=== PATIENT | male | born 1960 | race Two or more races ===

== ENCOUNTER 2021-08-29 01:51 | Inpatient (IN) | payer SELFPAY ==
[~2021-08-29] VITALS: Ht 180.3 cm; Wt 79.7 kg
[2021-08-29] MEDS ORDERED: HALOPERIDOL LACTATE 5 MG/ML VIAL. IVP PRN (02:15)
[2021-08-29] MEDS ORDERED: hydrALAZINE 20 MG/ML VIAL. IVP PRN (02:15)
[2021-08-29] MEDS ORDERED: ACETAMINOPHEN 325 MG TABLET. PO PRN (02:15)
[2021-08-29] MEDS ORDERED: ONDANSETRON PF 4 MG/2 ML VIAL. IV PRN (02:15)
[2021-08-29] MEDS ORDERED: fentaNYL PF VIAL 100 MCG/2 ML VIAL IVP PRN (02:15)
--- NOTE | 2021-08-29 02:16 | NUR ---
Admit from [facility] via EMS rkaty. A/O x 4 on arrival. Pleasant. Cooperative. Hungry. Ate box lunch. Explained he has been sick for over a month with generalized pain. Rates pain 4/10 described as aching. Uses [facility] but does not know his medication list. , Mary Ellen, , is swimming pool serviceperson. Orientated to room and call light. Reviewed POC. Verbalized understanding. Resting in bed. Call light at hand.
[2021-08-29 02:22] VITALS: BP 169/90
[2021-08-29 07:00] VITALS: BP 147/75
--- NOTE | 2021-08-29 09:42 | PDOC2 ---
CHITO ALEXANDER FOOD SELECTOR 08/29/21 0942: CARDIAC CONSULT DATE OF CONSULT Date of Consult DATE: 08/29/21 TIME: 09:37 REASON FOR CONSULT Reason for Consult: NSTEMI REFERRING PHYSICIAN Referring Physician: Dr. Hoyt SOURCE Source: Chart review, Patient HISTORY OF PRESENT ILLNESS HISTORY OF PRESENT ILLNESS This is a 60 yo male who presented secondary to persistent nausea/vomiting, body aches, and productive cough. Patient reports nausea/vomiting for the last 5-6 days. Has been unable to keep much down. Consequently, has been unable to take his medications. Blood pressure significantly elevated upon arrival at 249/138. Troponin noted to be mildly elevated, which prompted this consult. Patient was transferred to [facility] for further evaluation and treatment. He denies any chest pain, palpitations, dizziness, diaphoresis. Home BP meds have been resumed and blood pressure has improved. Also was able to eat a meal yesterday evening and has had no further vomiting. Has a history of CAD s/p PCI/stent 6 months ago in [place], [place]. Reports reduced heart function at that time. Follows with fountain dispenser, Dr. Fallon. Repeat echocardiogram with normal heart function per patient's reports. Is scheduled for outpatient gastric emptying study next week. PAST MEDICAL HISTORY Cardiovascular: AFIB, CAD, CHF, HTN, Hyperlipidemia Pulmonary: Asthma Musculoskeletal: Osteoarthritis Endocrine: Diabetes PAST SURGICAL HISTORY Past Surgical History: Other (PCI/stent ) FAMILY HISTORY Family History: Hypertension SOCIAL HISTORY Smoke: No ALCOHOL: none Drugs: Marijuana Lives: with Family ALLERGIES ALLERGIES: Coded Allergies: No Known Drug Allergies (Unverified , 08/29/21) ROS Review of System 14 point ROS conducted with pertinent positives noted above in HPI PHYSICAL EXAM General: Alert, Oriented X3, Cooperative, No acute distress HEENT: Atraumatic Lungs: Clear to auscultation Heart: Regular rate Abdomen: Soft, No tenderness Extremities: No edema, Normal pulses Skin: No significant lesion, Other (right great toe ulcer) Neuro: Normal speech, Sensation intact Psych/Mental Status: Mental status NL, Mood NL MUSCULOSKELETAL: Osteoarthritic changes both hands VITALS/I&O VITALS/I&O: Vital Signs Date Time Temp Pulse Resp B/P (MAP) Pulse Ox O2 Delivery O2 Flow Rate FiO2 08/29/21 07:00 98.1 73 16 147/75 (99) 100 Room Air 98.1 I & O 08/28/21 08/28/21 08/29/21 14:59 22:59 06:59 Intake Total 300 ml Balance 300 ml LABS Lab: Laboratory Tests Test 08/29/21 08:08 Glucose (Fingerstick) 237 mg/dL (70-99) H ASSESSMENT/PLAN ASSESSMENT/PLAN 1. Persistent nausea/vomiting; now resolved. Scheduled for outpatient gastric emptying study 2. Hypertensive urgency; secondary to missed medical therapy due to above. Now controlled 3. CAD; s/p recent PCI/stent 4. Mild troponin elevation; highest 380. Most probably type II, demand ischemia in setting of #2. CP free. 5. H/o ischemic cardiomyopathy; reports LV recovery per recent echo 6. Chronic diastolic CHF; appears compensated 7. Hyperlipidemia 8. Diabetes, II 9. PAFIB; presently SR. On Amiodarone for rhythm maintenance and Eliquis for stroke prophylaxis. 9. Marijuana use Recommendations Continue secondary prevention Outpatient GI workup as previously scheduled Follow up with primary fountain dispenser upon discharge Supportive care CELY HILARIO MD 08/29/21 1647: CARDIAC CONSULT ASSESSMENT/PLAN ASSESSMENT/PLAN Patient seen and examined He is feeling significantly better with no chest pain. Persistent nausea/vomiting; now resolved. Scheduled for outpatient gastric emptying study Hypertensive urgency; secondary to missed medical therapy due to above. Now controlled CAD; s/p recent PCI/stent. Follows with an outpatient fountain dispenser. Mild troponin elevation; highest 380. Most probably type II, demand ischemia in setting of hypertensive urgency. CP free. H/o ischemic cardiomyopathy; reports LV recovery per recent echo Chronic diastolic CHF; compensated Hyperlipidemia. Continuing medical treatment. Diabetes, II PAFIB; presently SR. On Amiodarone for rhythm maintenance and Eliquis for stroke prophylaxis. CHITO ALEXANDER APRN Aug 29, 2021 09:42 CELY HILARIO MD Aug 29, 2021 16:47
[2021-08-29 11:06] VITALS: BP 130/81
[2021-08-29] MEDS ORDERED: PRAS10TA9 PO (11:49)
[2021-08-29] MEDS ORDERED: AMIO200T53 PO (11:49)
[2021-08-29] MEDS ORDERED: METF500T16 PO (11:49)
[2021-08-29] MEDS ORDERED: PANT20TA2 PO (11:49)
[2021-08-29] MEDS ORDERED: CEPH500T PO (11:49)
[2021-08-29] MEDS ORDERED: CLIN130C TP (11:49)
[2021-08-29] MEDS ORDERED: SULF1TAB23 PO (11:49)
[2021-08-29] MEDS ORDERED: ONDA4TAB12 PO (11:49)
[2021-08-29] MEDS ORDERED: APIX5TAB PO (11:49)
[2021-08-29] MEDS ORDERED: SPIR25TA5 PO (11:49)
[2021-08-29] MEDS ORDERED: CARV3.12 PO (11:49)
[2021-08-29] MEDS ORDERED: IV DEXTROSE 5% 250 ML BAG. IV PRN (13:15)
[2021-08-29] MEDS ORDERED: DEXTROSE 50% 25 GM / 50ML DISP.SYRIN. IV PRN (13:15)
--- NOTE | 2021-08-29 13:35 | PDOC1 ---
History and Physical Date of Admission Date of Admission DATE: 08/29/21 TIME: 13:17 Identification/Chief Complaint Chief Complaint Nausea/vomiting Source Source: Patient History of Present Illness History of Present Illness Patient is a 60-year-old male with past medical history CAD with stent, DM2, HTN, GERD, who presents as a transfer from [facility] with concerns for NSTEMI. He reports nausea and vomiting over the past several days, and inability to take his home medications. These symptoms are not new to him, but did worsen acutely. Labs on admission showed glucose 239, troponin 170, 287, 380. Repeat high-sensitivity troponin this morning 474. He reports a history of a stent placement roughly 7 months ago at an outside facility. Since that time he has had intermittent syncopal episodes that occur when he gets up from standing. He is scheduled for gastric emptying study today to evaluate for possible gastroparesis as etiology of nausea/vomiting. Patient was admitted to our service with cardiology consult. Past Medical History Cardiovascular: CAD, CHF, HTN, Hyperlipidemia Pulmonary: Asthma Musculoskeletal: Osteoarthritis Endocrine: Diabetes Past Surgical History Past Surgical History Exploratory laparotomy, right finger surgery Family History Family History DM2, HTN Social History Smoke: No ALCOHOL: none Drugs: Marijuana Current Medications Current Medications Current Medications Ondansetron HCl (Zofran) 4 mg PRN Q4HRS PRN IV NAUSEA/VOMITING; Start 08/29/21 at 02:15 Acetaminophen (Tylenol) 650 mg PRN Q4HRS PRN PO TEMP OVER 100.4F OR MILD PAIN; Start 08/29/21 at 02:15 Hydralazine HCl (Apresoline Inj) 10 mg PRN Q4HRS PRN IVP ELEVATED BP, SEE COMMENTS; Start 08/29/21 at 02:15 Fentanyl Citrate (Fentanyl 2ml Vial) 25 mcg PRN Q2HR PRN IVP PAIN; Start 08/29/21 at 02:15 Haloperidol Lactate (Haldol Inj) 5 mg PRN Q6HRS PRN IVP AGITATION; Start 08/29/21 at 02:15 Apixaban (Eliquis) 5 mg DAILY PO ; Start 08/30/21 at 09:00; Status UNV Carvedilol (Coreg) 3.125 mg BIDWMEALS PO ; Start 08/29/21 at 17:00; Status UNV Active Scripts Active Reported Bactrim 400-80 Mg Tablet (Sulfamethoxazole/Trimethoprim) 1 Each Tablet 2 Tab PO BID 7 Days Cephalexin 500 Mg Tablet 1 Tab PO QID Neuac 1.2-5% Kit (Clindamycin/Benzoyl/Emol Cmb94) 130 Gm Cmb.cr.gel 1 Len TP DAILYWBKFT 30 Days Ondansetron Odt (Ondansetron) 4 Mg Tab.rapdis 1 Tab PO Q4HRS Effient (Prasugrel Hcl) 10 Mg Tablet 1 Tab PO DAILY Metformin Hcl 500 Mg Tablet 500 Mg PO BIDWMEALS Eliquis (Apixaban) 5 Mg Tablet 5 Mg PO DAILY Amiodarone Hcl 200 Mg Tablet 1 Tab PO DAILY Protonix (Pantoprazole Sodium) 20 Mg Tablet.dr 1 Tab PO DAILY Spironolactone 25 Mg Tablet 1 Tab PO DAILY Coreg (Carvedilol) 3.125 Mg Tablet 3.125 Mg PO BIDWMEALS Allergies Allergies: Coded Allergies: No Known Drug Allergies (Unverified , 08/29/21) ROS Review of System GENERAL: No history of weight change, weakness or fevers. SKIN: No bruising, hair changes or rashes. EYES: No blurred, double or loss of vision. NOSE AND THROAT: No history of nosebleeds, hoarseness or sore throat. HEART: Denies chest pain, denies palpitations. LUNGS: Denies cough, hemoptysis, wheezing or shortness of breath. GASTROINTESTINAL: Denies nausea, vomiting, abdominal pain. GENITOURINARY: Denies dysuria, frequency, urgency, hematuria. NEUROLOGIC: Denies history of numbness, tingling, tremor or weakness. PSYCHIATRIC: Denies anxiety, denies depression. ENDOCRINE: No history of heat or cold intolerance, polyuria or polydipsia. EXTREMITIES: Denies muscle weakness, joint pain, pain on walking or stiffness. Physical Exam Physical Exam General: Alert, Oriented X3, Cooperative, No acute distress HEENT: PERRLA, EOMI Lungs: Clear to auscultation, Normal air movement Heart: RRR, no murmurs Cardiovascular: S1, S2 Abdomen: Normal bowel sounds, Soft, No tenderness Extremities: No clubbing, No cyanosis Skin: No rashes, No significant lesion Neuro: Normal speech, Normal tone, Sensation intact Psych/Mental Status: Mental status NL, Mood NL Vitals Vitals Vital Signs Date Time Temp Pulse Resp B/P (MAP) Pulse Ox O2 Delivery O2 Flow Rate FiO2 08/29/21 11:06 98.0 85 20 130/81 (97) 99 Room Air 98.0 Labs Labs Laboratory Tests Test 08/29/21 08:08 08/29/21 11:10 08/29/21 11:28 Glucose (Fingerstick) 237 mg/dL (70-99) 291 mg/dL (70-99) Troponin I High Sensitivity 474 ng/L (4-75) Laboratory Tests Test 08/29/21 08:08 08/29/21 11:10 08/29/21 11:28 Glucose (Fingerstick) 237 mg/dL (70-99) 291 mg/dL (70-99) Troponin I High Sensitivity 474 ng/L (4-75) VTE Prophylaxis Ordered VTE Prophylaxis Devices: Yes VTE Pharmacological Prophylaxi: No Assessment/Plan Assessment/Plan Elevated troponins DM2 with hyperglycemia HTN GERD Plan: Cardiology was consulted but upon further evaluation I do not believe there are plans for any ischemic evaluation. Patient did have an echocardiogram performed at his regional vice president surgical sales office roughly 1 month ago with normal ejection fraction. No signs of volume overload or acute CHF on evaluation. Repeat high-sensitivity troponin elevated but not significantly. Cardiology has no plans for further evaluation patient can be discharged today. I discussed follow-up with PCP, his regional vice president surgical sales, and his fish cutting machine operator to complete further outpatient evaluation, and patient is comfortable with this plan of action. Discussed marijuana cessation and possible marijuana induced hyperemesis and alternative etiology. Greater than 30 minutes were spent managing the discharge of this patient. Justifications for Admission Other Justification CHRISTINA SWANN MD Aug 29, 2021 13:35
--- NOTE | 2021-08-29 13:46 | PDOC3 ---
Discharge Summary Visit Information Date of Admission: Aug 29, 2021 Date of Discharge: Aug 29, 2021 Brief Hospital Course Allergies Allergies Coded Allergies Type Severity Reaction Last Updated Verified No Known Drug Allergies 08/29/21 No Vital Signs Vital Signs Date Time Temp Pulse Resp B/P (MAP) Pulse Ox O2 Delivery O2 Flow Rate FiO2 08/29/21 11:06 98.0 85 20 130/81 (97) 99 Room Air 98.0 Lab Results Laboratory Tests Test 08/29/21 08:08 08/29/21 11:10 08/29/21 11:28 Glucose (Fingerstick) 237 mg/dL (70-99) 291 mg/dL (70-99) Troponin I High Sensitivity 474 ng/L (4-75) Laboratory Tests Test 08/29/21 08:08 08/29/21 11:10 08/29/21 11:28 Glucose (Fingerstick) 237 mg/dL (70-99) 291 mg/dL (70-99) Troponin I High Sensitivity 474 ng/L (4-75) Brief Hospital Course Mr. Kerr is a 60 old male who presented with NSTEMI. Initial high- sensitivity troponins showed 170, 287, PAD. Repeat high-sensitivity troponin at [place] was 474. His presenting symptoms at [facility] were nausea and vomiting, which has resolved today. He has a track repair person who is working him up for gastroparesis, and a window cutter at an outside facility. Cardiology was consulted, and I do not believe they have any plans for acute evaluation or treatment. Patient stable for discharge home with close PCP follow-up. Discharge Information Condition at Discharge: Improved Disposition/Orders: D/C to Home Scheduled Amiodarone Hcl (Amiodarone Hcl) 200 Mg Tablet, 1 TAB PO DAILY for cardiac, #90 Ref 1 (Reported) Entered as Reported by: DEMARCO PADILLA on 08/29/211148 Last Action: New Order on 08/29/211148 by DEMARCO PADILLA Apixaban (Eliquis) 5 Mg Tablet, 5 MG PO DAILY for cardiac, (Reported) Entered as Reported by: DEMARCO PADILLA on 08/29/211148 Last Action: Continued on 08/29/21 1313 by CHRISTINA SWANN MD Carvedilol (Coreg ) 3.125 Mg Tablet, 3.125 MG PO BIDWMEALS for CARDIAC, (R eported) Entered as Reported by: DEMARCO PADILLA on 08/29/211148 Last Action: Continued on 08/29/211312 by CHRISTINA SWANN MD Cephalexin (Cephalexin) 500 Mg Tablet, 1 TAB PO QID for infection, #40 (Reported) Entered as Reported by: DEMARCO PADILLA on 08/29/211148 Last Action: New Order on 08/29/211148 by DEMARCO PADILLA Clindamycin/Benzoyl/Emol Cmb94 (Neuac 1.2-5% Kit) 130 Gm Cmb.cr.gel, 1 ZENON TP DAILYWBKFT for infection for 30 Days, #130 Ref 0 (Reported) Entered as Reported by: DEMARCO PADILLA on 08/29/211148 Last Action: New Order on 08/29/211148 by DEMARCO PADILLA Metformin Hcl (Metformin Hcl) 500 Mg Tablet, 500 MG PO BIDWMEALS for ANTI- DIABETIC, Ref 0 (Reported) Entered as Reported by: DEMARCO PADILLA on 08/29/211148 Last Action: New Order on 08/29/211148 by DEMARCO PADILLA Ondansetron (Ondansetron Odt) 4 Mg Tab.rapdis, 1 TAB PO Q4HRS for GI, #16 (Reported) Entered as Reported by: DEMARCO PADILLA on 08/29/211148 Last Action: New Order on 08/29/211148 by DEMARCO PADILLA Pantoprazole Sodium (Protonix) 20 Mg Tablet.dr, 1 TAB PO DAILY for GI, #30 (Reported) Entered as Reported by: DEMARCO PADILLA on 08/29/211148 Last Action: New Order on 08/29/211148 by DEMARCO PADILLA Prasugrel Hcl (Effient) 10 Mg Tablet, 1 TAB PO DAILY for cardiac, #90 Ref 1 (Reported) Entered as Reported by: DEMARCO PADILLA on 08/29/211148 Last Action: New Order on 08/29/211148 by DEMARCO PADILLA Spironolactone (Spironolactone) 25 Mg Tablet, 1 TAB PO DAILY for diuretic, #90 Ref 1 (Reported) Entered as Reported by: DEMARCO PADILLA on 08/29/211148 Last Action: New Order on 08/29/211148 by DEMARCO PADILLA Sulfamethoxazole/Trimethoprim (Bactrim 400-80 Mg Tablet) 1 Each Tablet, 2 TAB PO BID for infection for 7 Days, #28 Ref 0 (Reported) Entered as Reported by: DEMARCO PADILLA on 08/29/211148 Last Action: New Order on 08/29/211148 by DEMARCO PADILLA Justicifation of Admission Dx: Justifications for Admission: Justification of Admission Dx: Yes CHRISTINA SWANN MD Aug 29, 2021 13:45
[2021-08-29] MEDS ORDERED: APIXABAN 5 MG TABLET. PO SCH (14:00)
--- NOTE | 2021-08-29 14:27 | NUR ---
SS following for discharge planning. SS reviewed pt chart and discussed with pt RN. Pt is from home with spouse and is currently on room air. Self pay. Med Assist following. Discharge order on the chart for home with self care.
--- NOTE | 2021-08-29 14:36 | NUR ---
PATIENT DISCHARGED TO HOME. DISCHARGE INSTRUCTIONS GIVEN. PIV AND HEART MONITOR GIVEN. ESCORTED PATIENT OFF UNIT PER WHEELCHAIR INTO A PRIVATE VEHICLE.
[2021-08-29] MEDS ORDERED: CARVEDILOL 3.125 MG TABLET. PO SCH (17:00)
[2021-08-29] MEDS ORDERED: INSULIN LISPRO 300 UNITS/3 ML VIAL. SQ SCH (17:00)
[2021-08-29] MEDS ORDERED: INSULIN GLARGINE SYRINGE. SQ SCH (21:00)
== END 2021-08-29 14:40 | disposition home or self-care (01) | DRG 281 ==
LOC: 6 SOUTH 01:51
PROVIDERS: ADMIT Internal Medicine; ATTEND Internal Medicine
DX: I21.4 Non-ST elevation (NSTEMI) myocardial infarction (principal); I50.32 Chronic diastolic (congestive) heart failure; E11.43 Type 2 diabetes mellitus with diabetic autonomic (poly)neuropathy; E78.5 Hyperlipidemia, unspecified; F12.90 Cannabis use, unspecified, uncomplicated; I11.0 Hypertensive heart disease with heart failure; I16.0 Hypertensive urgency; I25.10 Atherosclerotic heart disease of native coronary artery without angina pectoris; I25.5 Ischemic cardiomyopathy; J45.909 Unspecified asthma, uncomplicated; K21.9 Gastro-esophageal reflux disease without esophagitis; Z79.01 Long term (current) use of anticoagulants; Z79.02 Long term (current) use of antithrombotics/antiplatelets; Z79.84 Long term (current) use of oral hypoglycemic drugs; Z79.899 Other long term (current) drug therapy; Z82.49 Family history of ischemic heart disease and other diseases of the circulatory system; Z83.3 Family history of diabetes mellitus; Z95.5 Presence of coronary angioplasty implant and graft; M19.90 Unspecified osteoarthritis, unspecified site; I48.0 Paroxysmal atrial fibrillation; K31.84 Gastroparesis
CPT/HCPCS: 36415; 82962; 84484; J1815; G0378